=== PATIENT | male | born 1945 | race Caucasian/White ===

== ENCOUNTER 2017-04-27 11:30 | Inpatient (IN) | payer MEDICARE, BC ==
[~2017-04-27] VITALS: Ht 167.6 cm; Wt 89.4 kg
[~2017-04-27 11:30] MED LIST: CARB1TAB47 PO; CITA20SO PO; CLON1TAB23 PO; CRESTOR20 MG PO; DUTA1CPM PO; NIFE10CA PO; POTA20PA PO; PRAM0.25 PO
[2017-04-27] MEDS ORDERED: ACETAMINOPHEN 325 MG TABLET PO PRN (13:00)
[2017-04-27] MEDS ORDERED: MAG HYDROX/AL HYDROX/SIMETH 30 ML ORAL.SUSP PO PRN (13:00)
[2017-04-27] MEDS ORDERED: MAGNESIUM HYDROXIDE 2,400 MG/30 ML ORAL.SUSP. PO PRN (13:00)
[2017-04-27] MEDS ORDERED: METHYL SALICYLATE/MENTHOL TOPICAL OINTMENT 29GM TUBE. TP PRN (13:00)
[2017-04-27 13:17] LABS: BASO % 1 % (0-3); EOS # 0.2 x10^3/uL (0.0-0.7); EOS % 3 % (0-3); HEMATOCRIT 40.2 % (39.0-53.0); HEMOGLOBIN 13.9 g/dL (13.0-17.5); LYMPH # 1.1 x10^3/uL (1.0-4.8); LYMPH % 16 % (24-48); MEAN CORPUSCULAR HEMOGLOBIN 33 pg (25-35); MEAN CORPUSCULAR HGB CONC 35 g/dL (31-37); MEAN CORPUSCULAR VOLUME 94 fL (79-100); MONO # 0.5 x10^3/uL (0.0-1.1); MONO % 7 % (0-9); NEUT # 5.3 x10^3uL (1.8-7.7); NEUT % 74 % (31-73); PLATELET COUNT 248 x10^3/uL (140-400); RED BLOOD COUNT 4.28 x10^6/uL (4.30-5.70); RED CELL DISTRIBUTION WIDTH 12.7 % (11.5-14.5); WHITE BLOOD COUNT 7.1 x10^3/uL (4.0-11.0)
[2017-04-27 13:25] VITALS: BP 168/99
[2017-04-27 13:31] LABS: ALBUMIN 3.8 g/dL (3.4-5.0); ALBUMIN/GLOBULIN RATIO 1.1 (1.0-1.7); CALCIUM 8.9 mg/dL (8.5-10.1); CREATININE 1.5 mg/dL (0.7-1.3); GFR 46.3; MAGNESIUM 2.3 mg/dL (1.8-2.4); POTASSIUM 3.8 mmol/L (3.5-5.1); TOTAL BILIRUBIN 0.4 mg/dL (0.2-1.0); TOTAL PROTEIN 7.2 g/dL (6.4-8.2)
[2017-04-27 13:47] LABS: % BANDS 1 % (0-9); % EOS 2 % (0-5); % LYMPHS 17 % (24-48); % METAS 1 % (0-0); % MONOS 9 % (0-10); % SEGS 70 % (35-66); TOXIC GRANULATION SLIGHT
[2017-04-27 13:48] LABS: PLT ESTIMATE ADEQUATE (ADEQUATE)
[2017-04-27] MEDS ORDERED: FLUOCINONIDE/EMOLLIENT 0.05% TOPICAL CREAM 15GM TUBE TP PRN (14:45)
[2017-04-27] MEDS ORDERED: ASPI-630 PO (14:55)
[2017-04-27] MEDS ORDERED: GABA600T2 PO (14:55)
[2017-04-27] MEDS ORDERED: FLUO15CR2 TP (14:55)
[2017-04-27] MEDS ORDERED: AMLO5TAB4 PO (14:55)
[2017-04-27] MEDS ORDERED: SPIR25TA PO (14:55)
[2017-04-27] MEDS ORDERED: KETO120S5 TP (14:55)
[2017-04-27] MEDS ORDERED: QUET50TA5 PO (14:55)
[2017-04-27] MEDS ORDERED: GABA-586 PO (14:55)
[2017-04-27] MEDS ORDERED: DOCU100C28 PO (14:55)
[2017-04-27 15:33] LABS: BILIRUBIN,URINE NEG (NEG); CLARITY,URINE CLEAR; COLOR,URINE YELLOW; GLUCOSE,URINE NEG (NEG); NITRITE,URINE NEG (NEG); UROBILINOGEN,URINE 0.2 mg/dL (0.2 mg/dL)
[2017-04-27 15:34] LABS: BACTERIA,URINE 0 /HPF (0-FEW); GRANULAR CASTS,URINE OCC /HPF; HYALINE CASTS, URINE FEW /HPF; SQUAMOUS EPITHELIAL CELL,UR OCC /LPF
--- NOTE | 2017-04-27 16:02 | EKG ---
[address] [address] Test Date: 2017-04-27 Test Time: 15:55:51 Pat Name: MADELYN PRINCE Department: Room: [address] [place] [address] Gender: M Coat Checker: ROSANNA : 1945 Requested By: NARCISA MONTEZ Order Number: [id number] Reading MD: Measurements Intervals [place] Rate: 62 P: 47 [place]: 156 QRS: 27 QRSD: 96 T: 38 QT: 408 QTc: 416 Interpretive Statements SINUS RHYTHM NO SPECIFIC ECG ABNORMALITIES RI6.01 No previous ECG available for comparison
[2017-04-27 16:14] VITALS: BP 138/85
[2017-04-27] MEDS ORDERED: AMITRIPTYLINE IV PRN (16:30)
[2017-04-27] MEDS ORDERED: EMU OIL IV PRN (16:30)
[2017-04-27] MEDS ORDERED: GABAPENTIN IV PRN (16:30)
[2017-04-27] MEDS: DUTASTERIDE 0.5 MG CAPSULE PO SCH (17:00)
[2017-04-27] MEDS: GABAPENTIN 300 MG CAPSULE. PO SCH ×2 (17:13→20:15)
[2017-04-27] MEDS: TAMSULOSIN 0.4 MG CAP.ER.24H. PO SCH (17:13)
[2017-04-27] MEDS: CARBIDOPA/LEVODOPA 25/100MG TABLET PO SCH ×2 (17:14→20:15)
[2017-04-27] MEDS: clonazePAM 1 MG TABLET PO SCH (20:14)
[2017-04-27] MEDS: MEMANTINE 5 MG TABLET. PO SCH (20:14)
[2017-04-27] MEDS: QUEtiapine 50 MG TABLET. PO SCH (20:15)
[2017-04-27] MEDS ORDERED: CARBIDOPA/LEVODOPA 25/100MG TABLET PO SCH (21:00)
[2017-04-27] MEDS ORDERED: QUEtiapine 50 MG TABLET. PO SCH (21:00)
--- NOTE | 2017-04-27 21:06 | PDOC ---
Exam Jb Demential Exam: Jb Note: Please also refer to the separate dictated note~for this date of service dictated separately.~Patient seen individually. Discussed the patient with Nursing staff reviewed the chart.~Reviewed interim history and current functioning. Reviewed vital signs,~Labs/ Radiology~and current medications noted below. Continue current treatment with the changes noted in the dictated addendum note Assessment: Vital Signs: Vital Signs Date Time Temp Pulse Resp B/P (MAP) Pulse Ox O2 Delivery O2 Flow Rate FiO2 04/27/17 16:14 98.0 76 18 138/85 (102) 100 I&O Intake and Output 04/28/17 07:00 Intake Total 360 ml Balance 360 ml Intake Oral 360 ml Labs: Laboratory Tests Test 04/27/17 13:06 04/27/17 14:27 White Blood Count 7.1 x10^3/uL (4.0-11.0) Red Blood Count 4.28 x10^6/uL (4.30-5.70) L Hemoglobin 13.9 g/dL (13.0-17.5) Hematocrit 40.2 % (39.0-53.0) Mean Corpuscular Volume 94 fL (79-100) Mean Corpuscular Hemoglobin 33 pg (25-35) Mean Corpuscular Hemoglobin Concent 35 g/dL (31-37) Red Cell Distribution Width 12.7 % (11.5-14.5) Platelet Count 248 x10^3/uL (140-400) Neutrophils (%) (Auto) 74 % (31-73) H Lymphocytes (%) (Auto) 16 % (24-48) L Monocytes (%) (Auto) 7 % (0-9) Eosinophils (%) (Auto) 3 % (0-3) Basophils (%) (Auto) 1 % (0-3) Neutrophils # (Auto) 5.3 x10^3uL (1.8-7.7) Lymphocytes # (Auto) 1.1 x10^3/uL (1.0-4.8) Monocytes # (Auto) 0.5 x10^3/uL (0.0-1.1) Eosinophils # (Auto) 0.2 x10^3/uL (0.0-0.7) Basophils # (Auto) 0.0 x10^3/uL (0.0-0.2) Segmented Neutrophils % 70 % (35-66) H Band Neutrophils % 1 % (0-9) Lymphocytes % 17 % (24-48) L Monocytes % 9 % (0-10) Eosinophils % 2 % (0-5) Metamyelocytes % 1 % (0-0) H Toxic Granulation Slight Platelet Estimate Adequate (ADEQUATE) Sodium Level 144 mmol/L (136-145) Potassium Level 3.8 mmol/L (3.5-5.1) Chloride Level 109 mmol/L (98-107) H Carbon Dioxide Level 28 mmol/L (21-32) Anion Gap 7 (6-14) Blood Urea Nitrogen 28 mg/dL (8-26) H Creatinine 1.5 mg/dL (0.7-1.3) H Estimated GFR (Cockcroft-Gault) 46.3 BUN/Creatinine Ratio 19 (6-20) Glucose Level 110 mg/dL (70-99) H Calcium Level 8.9 mg/dL (8.5-10.1) Magnesium Level 2.3 mg/dL (1.8-2.4) Total Bilirubin 0.4 mg/dL (0.2-1.0) Aspartate Amino Transferase (AST) 9 U/L (15-37) L Alanine Aminotransferase (ALT) 17 U/L (16-63) Alkaline Phosphatase 72 U/L (46-116) Total Protein 7.2 g/dL (6.4-8.2) Albumin 3.8 g/dL (3.4-5.0) Albumin/Globulin Ratio 1.1 (1.0-1.7) Urine Collection Type Unknown Urine Color Yellow Urine Clarity Clear Urine pH 5.5 Urine Specific [place] 1.010 Urine Protein Neg (NEG-TRACE) Urine Glucose (UA) Neg mg/dL (NEG) Urine Ketones (Stick) Neg mg/dL (NEG) Urine Blood Neg (NEG) Urine Nitrite Neg (NEG) Urine Bilirubin Neg (NEG) Urine Urobilinogen Dipstick 0.2 mg/dL (0.2 mg/dL) Urine Leukocyte Esterase Neg (NEG) Urine RBC 1-2 /HPF (0-2) Urine WBC 1-4 /HPF (0-4) Urine Squamous Epithelial Cells Occ /LPF Urine Bacteria 0 /HPF (0-FEW) Urine Hyaline Casts Few /HPF Urine Granular Casts Occ /HPF Urine Mucus Slight /LPF Current Medications: Meds: Current Medications Acetaminophen (Tylenol) 650 mg PRN Q6HRS PRN PO PAIN / TEMP; Start 04/27/17 at 13:00 Multi-Ingredient Ointment (Analgesic [place]) 1 ben PRN QID PRN TP MUSCLE PAIN; Start 04/27/17 at 13:00 Al Hydroxide/Mg Hydroxide (Mylanta Plus Xs) 15 ml PRN AFTMEALHC PRN PO DYSPEPSIA; Start 04/27/17 at 13:00 Magnesium Hydroxide (Milk Of Magnesia) 2,400 mg PRN QHS PRN PO CONSTIPATION; Start 04/27/17 at 13:00 Amlodipine Besylate (Norvasc) 5 mg DAILY PO ; Start 04/28/17 at 09:00 Aspirin (Children'S Aspirin) 81 mg DAILY PO ; Start 04/28/17 at 09:00 Docusate Sodium (Colace) 100 mg PRN BID PRN PO CONSTIPATION; Start 04/27/17 at 14:45 Fluocinonide (Lidex-E) 1 ben PRN BID PRN TP dry scalp; Start 04/27/17 at 14:45 Gabapentin (Neurontin) 300 mg TID@0900,1300,1700 PO Last administered on 17:13; Start 04/27/17 at 17:00 Ketoconazole (Nizoral 2% Shampoo) 1 ben 3X/WEEK TP ; Start 04/28/17 at 09:00 Quetiapine Fumarate (SEROquel) 50 mg QHS PO ; Start 04/27/17 at 21:00; Stop at 21:00; Status DC Spironolactone (Aldactone) 25 mg DAILY PO ; Start 04/28/17 at 09:00 Carbidopa/Levodopa (Sinemet 25/100) 1.5 tab TID PO ; Start 04/27/17 at 21:00; Stop 04/27/17 at 21:00; Status DC Clonazepam (KlonoPIN) 1 mg QHS PO Last administered on 04/27/17t 20:14; Start 04/27/17 at 21:00 Dutasteride (Avodart) 0.5 mg DAILYWLUN PO ; Start 04/28/17 at 12:00; Stop at 12:00; Status DC Gabapentin (Neurontin) 900 mg QHS PO Last administered on 04/27/17 20:15; Start 04/27/17 at 21:00 Influenza Virus Vaccine Quadrival (Fluarix Quad [id number] Syringe) 0.5 ml ONCE ONCE VAX IM ; Start 04/28/17 at 09:00; Stop 04/28/17 at 09:01 Tamsulosin HCl (Flomax) 0.4 mg DAILYWLUN PO ; Start 04/28/17 at 12:00; Stop at 12:00; Status DC Non-Formulary Medication 1 ea PRN Q8HRS PRN IV RESTLESS LEG PAIN; Start at 16:30 Carbidopa/Levodopa (Sinemet 25/100) 1.5 tab TID PO Last administered on 20:15; Start 04/27/17 at 17:00 Tamsulosin HCl (Flomax) 0.4 mg DAILYWLUN PO Last administered on 04/27/17 17: 13; Start 04/27/17 at 17:00 Dutasteride (Avodart) 0.5 mg DAILYWLUN PO Last administered on 04/27/17 17:00 ; Start 04/27/17 at 17:00 Rivastigmine (Exelon) 1 patch DAILY TD ; Start 04/28/17 at 09:00; Stop 04/28/17 at 09:00; Status DC Quetiapine Fumarate (SEROquel) 62.5 mg QHS PO Last administered on 04/27/17 20 :15; Start 04/27/17 at 21:00 Memantine (Namenda) 5 mg BID PO Last administered on 04/27/17 20:14; Start at 21:00 Active Scripts Active Reported Aldactone (Spironolactone) 25 Mg Tablet 25 Mg PO DAILY Seroquel (Quetiapine Fumarate) 50 Mg Tablet 50 Mg PO QHS Nizoral (Ketoconazole) 120 Ml Shampoo 1 Ben TP 3X/WEEK Gabapentin 600 Mg Tablet 900 Mg PO QHS Gabapentin 300 Mg Capsule 300 Mg PO TID@0900,1300,1700 Fluocinonide-E 0.05% Cream (Fluocinonide/Emollient) 15 Gm Cream..g. 1 Applic TP BID PRN use 2-4x daily to scalp Docusate Sodium 100 Mg Capsule 100 Mg PO PRN BID PRN Aspirin 81 Mg Tab.chew 81 Mg PO DAILY Norvasc (Amlodipine Besylate) 5 Mg Tablet 5 Mg PO DAILY Klor-Con (Potassium Chloride) 20 Meq Packet 20 Meq PO Procardia (Nifedipine) 10 Mg Capsule 10 Mg PO Citalopram Hbr (Citalopram Hydrobromide) 20 Mg/10 Ml Solution 20 Mg PO Clonazepam Odt (Clonazepam) 1 Mg Tab.rapdis 1 Mg PO QHS Crestor (Rosuvastatin Calcium) 20 Mg Tablet 20 Mg PO Linda 0.5-0.4 Mg Capsule (Dutasteride/Tamsulosin Hcl) 1 Each Cpmp.24hr 1 Each PO DAILYWLUN Carbidopa-Levo 25-100 Mg Odt (Carbidopa/Levodopa) 1 Each Tab.rapdis 1.5 Each PO TID Pramipexole Dihydrochloride (Pramipexole Di-Hcl) 0.25 Mg Tablet 0.25 Mg PO NARCISA MONTEZ MD Apr 27, 2017 21:06
[2017-04-28 04:08] LABS: HEMOGLOBIN A1C 5.4 % (4.8-5.6)
[2017-04-28 05:11] LABS: T3 TOTAL 104 ng/dL (71-180); THYROXINE 6.2 ug/dL (4.5-12.0)
[2017-04-28 06:31] VITALS: BP 164/81
[2017-04-28] MEDS ORDERED: RIVASTIGMINE 4.6MG PATCH. TD SCH (09:00)
[2017-04-28] MEDS ORDERED: FLU VACC QS2017-18 (36MOS+)/PF 0.5 ML SYRINGE. VAX IM ONE (09:00)
[2017-04-28] MEDS: KETOCONAZOLE 2% SHAMPOO 120ML BOTTLE. TP SCH (09:00)
[2017-04-28] MEDS: GABAPENTIN 300 MG CAPSULE. PO SCH ×4 (09:30→20:29)
[2017-04-28] MEDS: CARBIDOPA/LEVODOPA 25/100MG TABLET PO SCH ×3 (09:30→20:30)
[2017-04-28] MEDS: MEMANTINE 5 MG TABLET. PO SCH ×2 (09:31→20:25)
[2017-04-28] MEDS: amLODIPine BESYLATE 5 MG TABLET PO SCH (09:33)
[2017-04-28] MEDS: ASPIRIN 81 MG TAB.CHEW PO SCH (09:33)
[2017-04-28] MEDS: SPIRONOLACTONE 25 MG TABLET PO SCH (09:33)
[2017-04-28] MEDS: DOCUSATE SODIUM 100 MG CAPSULE PO PRN (10:26)
--- NOTE | 2017-04-28 11:12 | HP ---
ADMIT DATE: 04/27/2017 PSYCHIATRIC ADMISSION HISTORY/EVALUATION This is a late entry for date of service 04/27/2017. The patient was seen individually evening of 04/27/2017. I had previously discussed with the nursing staff on 2-3 occasions as the patient is being referred to us by his primary care physician, Dr. Mir on account of worsening psychotic symptoms within the context of his Parkinson's disease and potentially dangerous behaviors since he lives alone at home, and he was reacting to the visual hallucinations he was experiencing. He had failed prior interventions at the [facility], Department of Neurology. This note covers elements not covered in my initial note of 04/27/2017. IDENTIFYING DATA: The patient is a 72-year-old male referred to us by his primary care physician, Dr. Mir on account of recurrent visual hallucinations. Reportedly, the patient was seeing dogs and other animals, was throwing water at them, taking a stick after them. Much of this would happen at night and he was having significant sleep disturbance. The patient describes to extended periods of hallucinations and agrees that in his reaction and response to these hallucinations. Behaviors were dangerous. He states he was asked to stop driving as a consequence of this and he agreed to. He has the support of his son who lives a few houses down the street from him and helps with the patient's grocery shopping and other activities, but otherwise he is and lives by himself. Appetite has been fair. Sleep has been disturbed. No active suicidal or homicidal ideation. No clear symptoms of bipolar disorder. The patient has had some short term memory deficits. PAST PSYCHIATRIC HISTORY: As above. MEDICAL HISTORY: Positive for sleep apnea, spinal stenosis, restless legs syndrome, hypertension, arthritis, memory deficits, and a prior diagnosis of dementia, prostatic hypertrophy, hyperlipidemia, orthostatic hypotension, Parkinson's disease, acute kidney injury, chronic kidney disease stage 3. DRUG ALLERGIES: Negative. PRIMARY CARE PHYSICIAN: Dr. Mir. DIET: Regular. CODE STATUS: Full code. MEDICATIONS: Current psychotropics at the time of admission include Seroquel 50 mg at bedtime, Klonopin 1 mg at bedtime. MRAD was reviewed and he is additionally on Norvasc, aspirin, Sinemet, Avodart, Neurontin for his restless leg syndrome, Seroquel 50 mg at bedtime, which is being increased to 62.5 mg at bedtime, Aldactone, Flomax. FAMILY HISTORY: Noncontributory. SOCIAL HISTORY: The patient is , lives alone by himself. No alcohol or drug abuse history is noted. No physical, sexual, or elder abuse history. He is not known to be a perpetrator. MENTAL STATUS EXAMINATION: The patient was seen individually evening of 04/27/2017. He is oriented to himself and situation, initially thought the year was 1916, but then corrected it to 2017. He does have some short term memory deficits. Speech is coherent, otherwise fairly verbal, frustrated with the hallucinations, which have been recurrent. No active hallucinations at the time of my evaluation. No active suicidal or homicidal ideation. Attention span short, language function intact. Speech coherent. Thought processes goal directed. REVIEW OF SYSTEMS: No CV, , eye, ENT or pulmonary system symptoms on review. He does admit to the hallucinations as above. IMPRESSION: Psychotic disorder, unspecified. Probable major neurocognitive disorder, early Lewy body with delusions; anxiety disorder, unspecified; impulse control disorder, unspecified. Rest as above. PLAN: The patient had extensive medical neurological workup at the [facility]. We will not repeat this, request those records, Dr. Mir is aware of all those records and as indicated to the nursing staff that the patient's Sinemet should not be adjusted either way and we should focus on trying to resolve the hallucinations within the context of his Parkinson's without changing his medications for Parkinson's. I will see the patient daily individually. Request medical followup with Dr. Rosado/Dr. Borwn/Dr. Mir. We will increase the Seroquel to 62.5 mg p.o. at bedtime. Consider Nuplazid and given the possibility of Lewy body dementia, start Namenda 5 mg b.i.d. Initially, I had considered starting Exelon patch, but the patient stated he tried this in the past at [facility] I discontinued it. We will make further adjustments as clinically indicated. NARCISA MONTEZ MD DR: MILES/prachi JOB#: [id number] / [id number]
[2017-04-28] MEDS ORDERED: DUTASTERIDE 0.5 MG CAPSULE PO SCH (12:00)
[2017-04-28] MEDS ORDERED: TAMSULOSIN 0.4 MG CAP.ER.24H. PO SCH (12:00)
[2017-04-28 13:13] LABS: THYROID STIM HORMONE (TSH) 1.508 uIU/mL (0.358-3.740)
[2017-04-28] MEDS ORDERED: EMU OIL TP PRN (13:24)
[2017-04-28] MEDS ORDERED: AMITRIPTYLINE TP PRN (13:24)
[2017-04-28] MEDS ORDERED: GABAPENTIN TP PRN (13:24)
[2017-04-28] MEDS: DUTASTERIDE 0.5 MG CAPSULE PO SCH (13:33)
[2017-04-28] MEDS: TAMSULOSIN 0.4 MG CAP.ER.24H. PO SCH (13:33)
[2017-04-28 16:22] VITALS: BP 151/80
[2017-04-28] MEDS: clonazePAM 1 MG TABLET PO SCH (20:25)
[2017-04-28] MEDS: QUEtiapine 50 MG TABLET. PO SCH (20:30)
--- NOTE | 2017-04-28 21:03 | PDOC ---
Exam Jb Demential Exam: Jb Note: Please also refer to the separate dictated note~for this date of service dictated separately.~Patient seen individually. Discussed the patient with Nursing staff reviewed the chart.~Reviewed interim history and current functioning. Reviewed vital signs,~Labs/ Radiology~and current medications noted below. Continue current treatment with the changes noted in the dictated addendum note Assessment: Vital Signs: Vital Signs Date Time Temp Pulse Resp B/P (MAP) Pulse Ox O2 Delivery O2 Flow Rate FiO2 04/28/17 16:22 97.6 77 19 151/80 (103) 98 I&O Intake and Output 04/29/17 07:00 Intake Total 1080 ml Balance 1080 ml Intake Oral 1080 ml Current Medications: Meds: Current Medications Acetaminophen (Tylenol) 650 mg PRN Q6HRS PRN PO PAIN / TEMP; Start 04/27/17 at 13:00 Multi-Ingredient Ointment (Analgesic [place]) 1 ben PRN QID PRN TP MUSCLE PAIN; Start 04/27/17 at 13:00 Al Hydroxide/Mg Hydroxide (Mylanta Plus Xs) 15 ml PRN AFTMEALHC PRN PO DYSPEPSIA; Start 04/27/17 at 13:00 Magnesium Hydroxide (Milk Of Magnesia) 2,400 mg PRN QHS PRN PO CONSTIPATION; Start 04/27/17 at 13:00 Amlodipine Besylate (Norvasc) 5 mg DAILY PO Last administered on 04/28/17 09: 33; Start 04/28/17 at 09:00 Aspirin (Children'S Aspirin) 81 mg DAILY PO Last administered on 04/28/17 09: 33; Start 04/28/17 at 09:00 Docusate Sodium (Colace) 100 mg PRN BID PRN PO CONSTIPATION Last administered on 04/28/17 10:26; Start 04/27/17 at 14:45 Fluocinonide (Lidex-E) 1 ben PRN BID PRN TP dry scalp; Start 04/27/17 at 14:45 Gabapentin (Neurontin) 300 mg TID@0900,1300,1700 PO Last administered on 16:54; Start 04/27/17 at 17:00 Ketoconazole (Nizoral 2% Shampoo) 1 ben 3X/WEEK TP ; Start 04/28/17 at 09:00 Quetiapine Fumarate (SEROquel) 50 mg QHS PO ; Start 04/27/17 at 21:00; Stop at 21:00; Status DC Spironolactone (Aldactone) 25 mg DAILY PO Last administered on 04/28/17 09:33 ; Start 04/28/17 at 09:00 Carbidopa/Levodopa (Sinemet 25/100) 1.5 tab TID PO ; Start 04/27/17 at 21:00; Stop 04/27/17 at 21:00; Status DC Clonazepam (KlonoPIN) 1 mg QHS PO Last administered on 04/28/17 20:25; Start 04/27/17 at 21:00 Dutasteride (Avodart) 0.5 mg DAILYWLUN PO ; Start 04/28/17 at 12:00; Stop at 12:00; Status DC Gabapentin (Neurontin) 900 mg QHS PO Last administered on 04/28/17 20:29; Start 04/27/17 at 21:00 Influenza Virus Vaccine Quadrival (Fluarix Quad [id number] Syringe) 0.5 ml ONCE ONCE VAX IM ; Start 04/28/17 at 09:00; Stop 04/28/17 at 09:01; Status DC Tamsulosin HCl (Flomax) 0.4 mg DAILYWLUN PO ; Start 04/28/17 at 12:00; Stop at 12:00; Status DC Non-Formulary Medication 1 ea PRN Q8HRS PRN IV RESTLESS LEG PAIN; Start at 16:30; Stop 04/28/17 at 13:24; Status DC Carbidopa/Levodopa (Sinemet 25/100) 1.5 tab TID PO Last administered on 20:30; Start 04/27/17 at 17:00 Tamsulosin HCl (Flomax) 0.4 mg DAILYWLUN PO Last administered on 04/28/17 13: 33; Start 04/27/17 at 17:00 Dutasteride (Avodart) 0.5 mg DAILYWLUN PO Last administered on 04/28/17 13:33 ; Start 04/27/17 at 17:00 Rivastigmine (Exelon) 1 patch DAILY TD ; Start 04/28/17 at 09:00; Stop 04/28/17 at 09:00; Status DC Quetiapine Fumarate (SEROquel) 62.5 mg QHS PO Last administered on 04/28/17 20 :30; Start 04/27/17 at 21:00 Memantine (Namenda) 5 mg BID PO Last administered on 04/28/17 20:25; Start at 21:00 Non-Formulary Medication 1 ea PRN Q8HRS PRN TP RESTLESS LEG PAIN; Start at 13:24 Vitamin D (Vitamin D3) 50,000 unit WEEKLY PO ; Start 04/29/17 at 09:00 Vitamin D (Vitamin D3) 50,000 unit WEEKLY PO ; Start 05/05/17 at 09:00; Status UNV Active Scripts Active Reported Aldactone (Spironolactone) 25 Mg Tablet 25 Mg PO DAILY Seroquel (Quetiapine Fumarate) 50 Mg Tablet 50 Mg PO QHS Nizoral (Ketoconazole) 120 Ml Shampoo 1 Ben TP 3X/WEEK Gabapentin 600 Mg Tablet 900 Mg PO QHS Gabapentin 300 Mg Capsule 300 Mg PO TID@0900,1300,1700 Fluocinonide-E 0.05% Cream (Fluocinonide/Emollient) 15 Gm Cream..g. 1 Applic TP BID PRN use 2-4x daily to scalp Docusate Sodium 100 Mg Capsule 100 Mg PO PRN BID PRN Aspirin 81 Mg Tab.chew 81 Mg PO DAILY Norvasc (Amlodipine Besylate) 5 Mg Tablet 5 Mg PO DAILY Klor-Con (Potassium Chloride) 20 Meq Packet 20 Meq PO Procardia (Nifedipine) 10 Mg Capsule 10 Mg PO Citalopram Hbr (Citalopram Hydrobromide) 20 Mg/10 Ml Solution 20 Mg PO Clonazepam Odt (Clonazepam) 1 Mg Tab.rapdis 1 Mg PO QHS Crestor (Rosuvastatin Calcium) 20 Mg Tablet 20 Mg PO Linda 0.5-0.4 Mg Capsule (Dutasteride/Tamsulosin Hcl) 1 Each Cpmp.24hr 1 Each PO DAILYWLUN Carbidopa-Levo 25-100 Mg Odt (Carbidopa/Levodopa) 1 Each Tab.rapdis 1.5 Each PO TID Pramipexole Dihydrochloride (Pramipexole Di-Hcl) 0.25 Mg Tablet 0.25 Mg PO Diagnosis: Problems: (1) Anxiety disorder (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
[2017-04-29 06:05] VITALS: BP 145/90
[2017-04-29] MEDS: MEMANTINE 5 MG TABLET. PO SCH ×2 (08:37→19:45)
[2017-04-29] MEDS: amLODIPine BESYLATE 5 MG TABLET PO SCH (08:37)
[2017-04-29] MEDS: CARBIDOPA/LEVODOPA 25/100MG TABLET PO SCH ×3 (08:38→19:45)
[2017-04-29] MEDS: ASPIRIN 81 MG TAB.CHEW PO SCH (08:38)
[2017-04-29] MEDS: SPIRONOLACTONE 25 MG TABLET PO SCH (08:38)
[2017-04-29] MEDS: GABAPENTIN 300 MG CAPSULE. PO SCH ×4 (08:38→19:45)
[2017-04-29] MEDS ORDERED: CHOLECALCIFEROL (VITAMIN D3) 50,000 UNIT CAPSULE PO SCH (09:00)
[2017-04-29] MEDS: DUTASTERIDE 0.5 MG CAPSULE PO SCH (12:25)
[2017-04-29] MEDS: TAMSULOSIN 0.4 MG CAP.ER.24H. PO SCH (12:25)
[2017-04-29] MEDS ORDERED: POLYVINYL ALCOHOL 1.4% OPHTH SOLUTION 15ML BOTTLE. OU PRN (15:30)
[2017-04-29 16:28] VITALS: BP 149/96
--- NOTE | 2017-04-29 17:48 | CONS ---
DATE OF CONSULTATION: 04/28/2017 REASON FOR CONSULTATION: Medical management. HISTORY OF PRESENT ILLNESS: The patient is a 72-year-old male patient who was admitted on the account of worsening psychotic symptoms within the context of his Parkinson disease as the patient has been reacting to visual hallucination. He lives alone at home and he was experiencing that he has been seeing dogs and other animals and was throwing water at them, taking a stick after them and all of this happened mostly at nighttime and he has significant sleep disturbances and the behavior was dangerous. He states he was asked to stop driving as a consequence of this and he agreed to. He has the support of his son who lives a few houses down the street from him and helps with the patient's grocery shopping and other activities. Otherwise, he is and lives by himself. He is here. The patient denied any suicidal or homicidal ideations and was admitted for inpatient psychiatric stabilization. PAST MEDICAL HISTORY: Significant for sleep apnea, spinal stenosis, restless leg syndrome, hypertension, osteoarthritis, memory deficit, dementia, prostatic hypertrophy, hyperlipidemia, orthostatic hypotension. He is also known to have Parkinson disease, acute kidney injury and chronic kidney disease stage 3. ALLERGIES: He has no known drug allergies. MEDICATIONS: He is currently on following medications: Amlodipine 5 mg once a day, aspirin 81 mg once a day, carbidopa/levodopa 25/100 mg one and a half tablet 3 times a day, citalopram hydrobromide 20 mg daily, clonazepam 1 mg once a day at bedtime, Colace 100 mg twice a day, dutasteride, tamsulosin 1 capsule once a day, fluocinonide/emollient applied topically twice a day for dry scalp, gabapentin 300 mg 3 times a day, gabapentin 900 mg at bedtime, ketoconazole or Nizoral 1 application topically 3 times per week, nifedipine 10 mg once a day, potassium chloride 20 mEq once a day, pramipexole 0.25 mg once a day, quetiapine fumarate 50 mg at bedtime, Crestor 20 mg at bedtime, spironolactone 25 mg p.o. daily. FAMILY HISTORY: Unremarkable. SOCIAL HISTORY: The patient is , lives alone by himself. He does not drink alcohol or use any recreational drugs. Does not smoke. PHYSICAL EXAMINATION: GENERAL: When I saw him this afternoon, he was sitting comfortably in his chair in no apparent distress. He was awake, alert, oriented to time, place and person. There was no pallor, jaundice or cyanosis. No lymphadenopathy or thyromegaly. No jugular venous distention. No limb edema. VITAL SIGNS: His heart rate was 77, blood pressure 151/80, temperature was 97.6, respiratory rate was 19 and oxygen saturation was 98%. HEAD, EYES, EARS, NOSE, and THROAT: Showed normocephalic, atraumatic. NECK: Supple. HEART: Showed normal first and second heart sounds with no gallop, rub or murmur. CHEST: Clear to auscultation. No crepitation or rhonchi. ABDOMEN: Distended, soft, nontender. No guarding or rigidity. No organomegaly. Hernial orifices intact. Bowel sounds normal. NEUROLOGIC: He was awake, alert, responding appropriately. Cranial nerves intact. EXTREMITIES: He moves extremities without difficulty. He ambulates without assistance or assistive devices. LABORATORY DATA: This morning showed a serum sodium 144, potassium 3.8, chloride 109, bicarbonate 28, anion gap of 7, BUN 28, creatinine 1.5, estimated GFR was 60 mL per minute. His glucose 110, calcium was 8.9, magnesium was 2.3. Hemoglobin A1c was 5.4. Serum iron 72, TIBC was 266, iron saturation 27. Total bilirubin, AST, ALT, alkaline phosphatase were normal. Total protein 7.2, albumin 3.8. His triglycerides were 91, cholesterol 181, LDL was 130, VLDL was 18, and HDL was 50, the ratio was 3. His vitamin D3 was low at 29.6. TSH was normal at 1.5. Total T4 and total T3 were all normal. His white cell count was 7100, hemoglobin 13.9, hematocrit 40, MCV 94 and platelet count 248,000 with normal manual differential. ASSESSMENT AND PLAN: In summary, this is a 72-year-old male patient with visual hallucination that he tends to react to. He basically sees dogs and other animals, was throwing water at them and taking a stick after them and much of this would happen at nighttime. He has significant sleep disturbance. He is on Sinemet. The most likely cause of his hallucinations is the Sinemet; however, he has Parkinson disease. I believe he is followed by his neurologist at [facility]. I would consult Dr. Sanford to perhaps assist and tell if whether some other medications can be substituted. CRISTEL TATE MD DR: FABIOLA/prachi JOB#: [id number] / [id number]
[2017-04-29] MEDS: QUEtiapine 50 MG TABLET. PO SCH (19:45)
[2017-04-29] MEDS: clonazePAM 1 MG TABLET PO SCH (19:46)
[2017-04-29] MEDS: MIRTAZAPINE 7.5 MG TABLET. PO SCH (19:47)
--- NOTE | 2017-04-29 20:55 | PDOC ---
Exam Jb Demential Exam: Jb Note: Please also refer to the separate dictated note~for this date of service dictated separately.~Patient seen individually. Discussed the patient with Nursing staff reviewed the chart.~Reviewed interim history and current functioning. Reviewed vital signs,~Labs/ Radiology~and current medications noted below. Continue current treatment with the changes noted in the dictated addendum note Assessment: Vital Signs: Vital Signs Date Time Temp Pulse Resp B/P (MAP) Pulse Ox O2 Delivery O2 Flow Rate FiO2 04/29/17 16:28 98.6 80 16 149/96 (113) 97 Room Air I&O Intake and Output 04/30/17 06:59 Intake Total 1400 ml Balance 1400 ml Intake Oral 1400 ml Current Medications: Meds: Current Medications Acetaminophen (Tylenol) 650 mg PRN Q6HRS PRN PO PAIN / TEMP; Start 04/27/17 at 13:00 Multi-Ingredient Ointment (Analgesic [place]) 1 ben PRN QID PRN TP MUSCLE PAIN; Start 04/27/17 at 13:00 Al Hydroxide/Mg Hydroxide (Mylanta Plus Xs) 15 ml PRN AFTMEALHC PRN PO DYSPEPSIA; Start 04/27/17 at 13:00 Magnesium Hydroxide (Milk Of Magnesia) 2,400 mg PRN QHS PRN PO CONSTIPATION; Start 04/27/17 at 13:00 Amlodipine Besylate (Norvasc) 5 mg DAILY PO Last administered on 04/29/17 08: 37; Start 04/28/17 at 09:00 Aspirin (Children'S Aspirin) 81 mg DAILY PO Last administered on 04/29/17 08: 38; Start 04/28/17 at 09:00 Docusate Sodium (Colace) 100 mg PRN BID PRN PO CONSTIPATION Last administered on 04/28/17 10:26; Start 04/27/17 at 14:45 Fluocinonide (Lidex-E) 1 ben PRN BID PRN TP dry scalp; Start 04/27/17 at 14:45 Gabapentin (Neurontin) 300 mg TID@0900,1300,1700 PO Last administered on 16:10; Start 04/27/17 at 17:00 Ketoconazole (Nizoral 2% Shampoo) 1 ben 3X/WEEK TP ; Start 04/28/17 at 09:00 Quetiapine Fumarate (SEROquel) 50 mg QHS PO ; Start 04/27/17 at 21:00; Stop at 21:00; Status DC Spironolactone (Aldactone) 25 mg DAILY PO Last administered on 04/29/17 08:38 ; Start 04/28/17 at 09:00 Carbidopa/Levodopa (Sinemet 25/100) 1.5 tab TID PO ; Start 04/27/17 at 21:00; Stop 04/27/17 at 21:00; Status DC Clonazepam (KlonoPIN) 1 mg QHS PO Last administered on 04/29/17 19:46; Start 04/27/17 at 21:00 Dutasteride (Avodart) 0.5 mg DAILYWLUN PO ; Start 04/28/17 at 12:00; Stop at 12:00; Status DC Gabapentin (Neurontin) 900 mg QHS PO Last administered on 04/29/17 19:45; Start 04/27/17 at 21:00 Influenza Virus Vaccine Quadrival (Fluarix Quad [id number] Syringe) 0.5 ml ONCE ONCE VAX IM ; Start 04/28/17 at 09:00; Stop 04/28/17 at 09:01; Status DC Tamsulosin HCl (Flomax) 0.4 mg DAILYWLUN PO ; Start 04/28/17 at 12:00; Stop at 12:00; Status DC Non-Formulary Medication 1 ea PRN Q8HRS PRN IV RESTLESS LEG PAIN; Start at 16:30; Stop 04/28/17 at 13:24; Status DC Carbidopa/Levodopa (Sinemet 25/100) 1.5 tab TID PO Last administered on 19:45; Start 04/27/17 at 17:00 Tamsulosin HCl (Flomax) 0.4 mg DAILYWLUN PO Last administered on 04/29/17 12: 25; Start 04/27/17 at 17:00 Dutasteride (Avodart) 0.5 mg DAILYWLUN PO Last administered on 04/29/17 12:25 ; Start 04/27/17 at 17:00 Rivastigmine (Exelon) 1 patch DAILY TD ; Start 04/28/17 at 09:00; Stop 04/28/17 at 09:00; Status DC Quetiapine Fumarate (SEROquel) 62.5 mg QHS PO Last administered on 04/29/17 19 :45; Start 04/27/17 at 21:00 Memantine (Namenda) 5 mg BID PO Last administered on 04/29/17 19:45; Start at 21:00 Non-Formulary Medication 1 ea PRN Q8HRS PRN TP RESTLESS LEG PAIN; Start at 13:24 Vitamin D (Vitamin D3) 50,000 unit WEEKLY PO Last administered on 04/29/17 08: 40; Start 04/29/17 at 09:00 Vitamin D (Vitamin D3) 50,000 unit WEEKLY PO ; Start 05/05/17 at 09:00; Status UNV Mirtazapine (Remeron) 3.75 mg QHS PO Last administered on 04/29/17 19:47; Start 04/29/17 at 21:00 Artificial Tears (Artificial Tears) 1 drop PRN Q1HR PRN OU DRY EYE Last administered on 04/29/17 16:10; Start 04/29/17 at 15:30 Active Scripts Active Reported Aldactone (Spironolactone) 25 Mg Tablet 25 Mg PO DAILY Seroquel (Quetiapine Fumarate) 50 Mg Tablet 50 Mg PO QHS Nizoral (Ketoconazole) 120 Ml Shampoo 1 Ben TP 3X/WEEK Gabapentin 600 Mg Tablet 900 Mg PO QHS Gabapentin 300 Mg Capsule 300 Mg PO TID@0900,1300,1700 Fluocinonide-E 0.05% Cream (Fluocinonide/Emollient) 15 Gm Cream..g. 1 Applic TP BID PRN use 2-4x daily to scalp Docusate Sodium 100 Mg Capsule 100 Mg PO PRN BID PRN Aspirin 81 Mg Tab.chew 81 Mg PO DAILY Norvasc (Amlodipine Besylate) 5 Mg Tablet 5 Mg PO DAILY Klor-Con (Potassium Chloride) 20 Meq Packet 20 Meq PO Procardia (Nifedipine) 10 Mg Capsule 10 Mg PO Citalopram Hbr (Citalopram Hydrobromide) 20 Mg/10 Ml Solution 20 Mg PO Clonazepam Odt (Clonazepam) 1 Mg Tab.rapdis 1 Mg PO QHS Crestor (Rosuvastatin Calcium) 20 Mg Tablet 20 Mg PO Linda 0.5-0.4 Mg Capsule (Dutasteride/Tamsulosin Hcl) 1 Each Cpmp.24hr 1 Each PO DAILYWLUN Carbidopa-Levo 25-100 Mg Odt (Carbidopa/Levodopa) 1 Each Tab.rapdis 1.5 Each PO TID Pramipexole Dihydrochloride (Pramipexole Di-Hcl) 0.25 Mg Tablet 0.25 Mg PO Diagnosis: Problems: (1) Anxiety disorder (2) Dementia due to Parkinson's disease with behavioral disturbance (3) Impulse control disorder (4) Psychosis, atypical NARCISA MONTEZ MD Apr 29, 2017 20:55
[2017-04-30 06:24] VITALS: BP 162/96
--- NOTE | 2017-04-30 08:25 | PN ---
DATE: 04/28/2017 This late entry for 04/28/2017 covers elements not covered in my initial note of 04/28/2017. SUBJECTIVE: I met with the patient in the evening of 04/28/2017 at some length individually. The patient has been pleasant, takes his medications whole, denies any hallucinations. Reviewed further information from the family indicative of hallucinations, not only in the evening also during the day on several occasions. REVIEW OF SYSTEMS: No CV, , pulmonary, eye, ENT system symptoms on review. MENTAL STATUS EXAM: Reasonably oriented. Speech is coherent, abstraction fair, computation somewhat impaired, language function intact, attention span fair. Mood and affect appears stable. LABORATORY DATA: Reviewed. IMPRESSION: Unchanged from initial note. PLAN: Continue current psychotropics mentioned in my initial note Namenda 5 mg b.i.d. We will increase to 10 mg b.i.d. in a couple of days. Continue Seroquel at 62.5 mg at bedtime, may need to increase this if he experience any more hallucinations. Continue Klonopin 1 mg at bedtime. Reviewed drug interactions. Risk/benefit ratio favors no further change. MAN Brittany MONTEZ MD DR: MILES/prachi JOB#: [id number] / [id number]
[2017-04-30] MEDS: GABAPENTIN 300 MG CAPSULE. PO SCH ×4 (08:46→19:57)
[2017-04-30] MEDS: MEMANTINE 5 MG TABLET. PO SCH (08:46)
[2017-04-30] MEDS: SPIRONOLACTONE 25 MG TABLET PO SCH (08:46)
[2017-04-30] MEDS: amLODIPine BESYLATE 5 MG TABLET PO SCH (08:46)
[2017-04-30] MEDS: ASPIRIN 81 MG TAB.CHEW PO SCH (08:46)
[2017-04-30] MEDS: KETOCONAZOLE 2% SHAMPOO 120ML BOTTLE. TP SCH (08:47)
[2017-04-30] MEDS: CARBIDOPA/LEVODOPA 25/100MG TABLET PO SCH ×3 (08:47→19:57)
[2017-04-30] MEDS: DUTASTERIDE 0.5 MG CAPSULE PO SCH (14:07)
[2017-04-30] MEDS: TAMSULOSIN 0.4 MG CAP.ER.24H. PO SCH (14:08)
[2017-04-30 16:37] VITALS: BP 154/87
[2017-04-30] MEDS: QUEtiapine 50 MG TABLET. PO SCH (19:54)
[2017-04-30] MEDS: MIRTAZAPINE 7.5 MG TABLET. PO SCH (19:56)
[2017-04-30] MEDS: MEMANTINE 10 MG TABLET. PO SCH (20:00)
[2017-04-30] MEDS: clonazePAM 1 MG TABLET PO SCH (20:01)
--- NOTE | 2017-04-30 22:25 | PDOC ---
Exam Jb Demential Exam: Jb Note: Please also refer to the separate dictated note~for this date of service dictated separately.~Patient seen individually. Discussed the patient with Nursing staff reviewed the chart.~Reviewed interim history and current functioning. Reviewed vital signs,~Labs/ Radiology~and current medications noted below. Continue current treatment with the changes noted in the dictated addendum note Assessment: Vital Signs: Vital Signs Date Time Temp Pulse Resp B/P (MAP) Pulse Ox O2 Delivery O2 Flow Rate FiO2 04/30/17 16:37 97.8 78 18 154/87 (109) 98 04/29/17 16:28 Room Air I&O Intake and Output 05/01/17 07:00 Intake Total 1680 ml Balance 1680 ml Intake Oral 1680 ml Current Medications: Meds: Current Medications Acetaminophen (Tylenol) 650 mg PRN Q6HRS PRN PO PAIN / TEMP; Start 04/27/17 at 13:00 Multi-Ingredient Ointment (Analgesic [place]) 1 ben PRN QID PRN TP MUSCLE PAIN; Start 04/27/17 at 13:00 Al Hydroxide/Mg Hydroxide (Mylanta Plus Xs) 15 ml PRN AFTMEALHC PRN PO DYSPEPSIA; Start 04/27/17 at 13:00 Magnesium Hydroxide (Milk Of Magnesia) 2,400 mg PRN QHS PRN PO CONSTIPATION; Start 04/27/17 at 13:00 Amlodipine Besylate (Norvasc) 5 mg DAILY PO Last administered on 04/30/17 08: 46; Start 04/28/17 at 09:00 Aspirin (Children'S Aspirin) 81 mg DAILY PO Last administered on 04/30/17 08: 46; Start 04/28/17 at 09:00 Docusate Sodium (Colace) 100 mg PRN BID PRN PO CONSTIPATION Last administered on 04/28/17 10:26; Start 04/27/17 at 14:45 Fluocinonide (Lidex-E) 1 ben PRN BID PRN TP dry scalp; Start 04/27/17 at 14:45 Gabapentin (Neurontin) 300 mg TID@0900,1300,1700 PO Last administered on 17:03; Start 04/27/17 at 17:00 Ketoconazole (Nizoral 2% Shampoo) 1 ben 3X/WEEK TP ; Start 04/28/17 at 09:00 Quetiapine Fumarate (SEROquel) 50 mg QHS PO ; Start 04/27/17 at 21:00; Stop at 21:00; Status DC Spironolactone (Aldactone) 25 mg DAILY PO Last administered on 04/30/17 08:46 ; Start 04/28/17 at 09:00 Carbidopa/Levodopa (Sinemet 25/100) 1.5 tab TID PO ; Start 04/27/17 at 21:00; Stop 04/27/17 at 21:00; Status DC Clonazepam (KlonoPIN) 1 mg QHS PO Last administered on 04/30/17 20:01; Start 04/27/17 at 21:00 Dutasteride (Avodart) 0.5 mg DAILYWLUN PO ; Start 04/28/17 at 12:00; Stop at 12:00; Status DC Gabapentin (Neurontin) 900 mg QHS PO Last administered on 04/30/17 19:57; Start 04/27/17 at 21:00 Influenza Virus Vaccine Quadrival (Fluarix Quad [id number] Syringe) 0.5 ml ONCE ONCE VAX IM ; Start 04/28/17 at 09:00; Stop 04/28/17 at 09:01; Status DC Tamsulosin HCl (Flomax) 0.4 mg DAILYWLUN PO ; Start 04/28/17 at 12:00; Stop at 12:00; Status DC Non-Formulary Medication 1 ea PRN Q8HRS PRN IV RESTLESS LEG PAIN; Start at 16:30; Stop 04/28/17 at 13:24; Status DC Carbidopa/Levodopa (Sinemet 25/100) 1.5 tab TID PO Last administered on 19:57; Start 04/27/17 at 17:00 Tamsulosin HCl (Flomax) 0.4 mg DAILYWLUN PO Last administered on 04/30/17 14: 08; Start 04/27/17 at 17:00 Dutasteride (Avodart) 0.5 mg DAILYWLUN PO Last administered on 04/30/17 14:07 ; Start 04/27/17 at 17:00 Rivastigmine (Exelon) 1 patch DAILY TD ; Start 04/28/17 at 09:00; Stop 04/28/17 at 09:00; Status DC Quetiapine Fumarate (SEROquel) 62.5 mg QHS PO Last administered on 04/29/17 19 :45; Start 04/27/17 at 21:00; Stop 04/30/17 at 18:53; Status DC Memantine (Namenda) 5 mg BID PO Last administered on 04/30/17 08:46; Start at 21:00; Stop 04/30/17 at 17:38; Status DC Non-Formulary Medication 1 ea PRN Q8HRS PRN TP RESTLESS LEG PAIN; Start at 13:24 Vitamin D (Vitamin D3) 50,000 unit WEEKLY PO Last administered on 04/29/17 08: 40; Start 04/29/17 at 09:00 Vitamin D (Vitamin D3) 50,000 unit WEEKLY PO ; Start 05/05/17 at 09:00; Status UNV Mirtazapine (Remeron) 3.75 mg QHS PO Last administered on 04/30/17 19:56; Start 04/29/17 at 21:00 Artificial Tears (Artificial Tears) 1 drop PRN Q1HR PRN OU DRY EYE Last administered on 04/29/17 16:10; Start 04/29/17 at 15:30 Memantine (Namenda) 10 mg BID PO Last administered on 04/30/17 20:00; Start at 21:00 Quetiapine Fumarate (SEROquel) 75 mg QHS PO Last administered on 04/30/17 19: 54; Start 04/30/17 at 21:00 Active Scripts Active Reported Aldactone (Spironolactone) 25 Mg Tablet 25 Mg PO DAILY Seroquel (Quetiapine Fumarate) 50 Mg Tablet 50 Mg PO QHS Nizoral (Ketoconazole) 120 Ml Shampoo 1 Ben TP 3X/WEEK Gabapentin 600 Mg Tablet 900 Mg PO QHS Gabapentin 300 Mg Capsule 300 Mg PO TID@0900,1300,1700 Fluocinonide-E 0.05% Cream (Fluocinonide/Emollient) 15 Gm Cream..g. 1 Applic TP BID PRN use 2-4x daily to scalp Docusate Sodium 100 Mg Capsule 100 Mg PO PRN BID PRN Aspirin 81 Mg Tab.chew 81 Mg PO DAILY Norvasc (Amlodipine Besylate) 5 Mg Tablet 5 Mg PO DAILY Klor-Con (Potassium Chloride) 20 Meq Packet 20 Meq PO Procardia (Nifedipine) 10 Mg Capsule 10 Mg PO Citalopram Hbr (Citalopram Hydrobromide) 20 Mg/10 Ml Solution 20 Mg PO Clonazepam Odt (Clonazepam) 1 Mg Tab.rapdis 1 Mg PO QHS Crestor (Rosuvastatin Calcium) 20 Mg Tablet 20 Mg PO Linda 0.5-0.4 Mg Capsule (Dutasteride/Tamsulosin Hcl) 1 Each Cpmp.24hr 1 Each PO DAILYWLUN Carbidopa-Levo 25-100 Mg Odt (Carbidopa/Levodopa) 1 Each Tab.rapdis 1.5 Each PO TID Pramipexole Dihydrochloride (Pramipexole Di-Hcl) 0.25 Mg Tablet 0.25 Mg PO Diagnosis: Problems: (1) Anxiety disorder (2) Dementia due to Parkinson's disease with behavioral disturbance (3) Lewy body dementia with behavioral disturbance (4) Impulse control disorder (5) Psychosis, atypical NARCISA MONTEZ MD Apr 30, 2017 22:25
[2017-05-01 06:14] VITALS: BP 127/81
[2017-05-01] MEDS: SPIRONOLACTONE 25 MG TABLET PO SCH (08:49)
[2017-05-01] MEDS: TAMSULOSIN 0.4 MG CAP.ER.24H. PO SCH (08:49)
[2017-05-01] MEDS: ASPIRIN 81 MG TAB.CHEW PO SCH (08:49)
[2017-05-01] MEDS: GABAPENTIN 300 MG CAPSULE. PO SCH ×4 (08:50→20:30)
[2017-05-01] MEDS: CARBIDOPA/LEVODOPA 25/100MG TABLET PO SCH ×3 (08:50→20:29)
[2017-05-01] MEDS: DUTASTERIDE 0.5 MG CAPSULE PO SCH (08:50)
[2017-05-01] MEDS: amLODIPine BESYLATE 5 MG TABLET PO SCH (08:50)
[2017-05-01] MEDS: MEMANTINE 10 MG TABLET. PO SCH ×2 (08:52→20:30)
--- NOTE | 2017-05-01 10:31 | PN ---
DATE: 04/29/2017 PSYCHIATRIC PROGRESS NOTE This late entry for 04/29/2017 covers elements not covered in my initial note of 04/29/2017. SUBJECTIVE: The patient seen individually evening of 04/29/2017. Discussed at treatment team meeting with the entire team and patient's daughter, Norma attended the conference. Norma normally lives in [place] and has moved here for as long as it takes to be with her father till he is stable. She described repeated hallucinations the patient was experiencing and then picking up canes to go after dogs and cats and other things he would perceive in his home. He was seeing people as well and often in the evening, but not uncommonly during the day as well. He has remained reasonably oriented, calmer, slept 6-1/2 hours, appetite 100%. At home, he was having significant disturbance of sleep, even though he is sleeping better here. Norma shared that he had been to the [facility] in the past with a questionable diagnosis of early Lewy body dementia, but at that time, they discontinued the Mirapex which they felt could have been worsening the hallucinations. REVIEW OF SYSTEMS: No CV, , pulmonary, eye, ENT system symptoms on review. MENTAL STATUS EXAM: Reasonably oriented. Speech is coherent, very pleasant, verbal, appropriate, abstraction fair, computation impaired, language function intact, attention span short. Mood and affect somewhat dysphoric. LABORATORY DATA: Reviewed. No suicidal or homicidal ideation. IMPRESSION: Unchanged from initial note. PLAN: Start Remeron 3.75 mg at bedtime to help with the insomnia and anxiety. Maintain Namenda 5 b.i.d. starting 04/30/2017, we will increase it to 10 b.i.d. Continue Klonopin 1 mg at bedtime, Seroquel 62.5 mg at bedtime, but we may need to increase this further depending on his progress. Reviewed drug interactions, risk/benefit ratio favors no further change. NARCISA MONTEZ MD DR: MILES/prachi JOB#: [id number] / [id number]
[2017-05-01 17:19] VITALS: BP 161/95
[2017-05-01] MEDS: QUEtiapine 50 MG TABLET. PO SCH (20:27)
[2017-05-01] MEDS: MIRTAZAPINE 7.5 MG TABLET. PO SCH (20:27)
[2017-05-01] MEDS: clonazePAM 1 MG TABLET PO SCH (20:30)
[2017-05-01] MEDS: DOCUSATE SODIUM 100 MG CAPSULE PO PRN (20:39)
--- NOTE | 2017-05-01 23:10 | PDOC ---
Exam Jb Demential Exam: Jb Note: Please also refer to the separate dictated note~for this date of service dictated separately.~Patient seen individually. Discussed the patient with Nursing staff reviewed the chart.~Reviewed interim history and current functioning. Reviewed vital signs,~Labs/ Radiology~and current medications noted below. Continue current treatment with the changes noted in the dictated addendum note Assessment: Vital Signs: Vital Signs Date Time Temp Pulse Resp B/P (MAP) Pulse Ox O2 Delivery O2 Flow Rate FiO2 05/01/17 17:19 97.7 77 16 161/95 (117) 95 04/29/17 16:28 Room Air I&O Intake and Output 05/02/17 07:00 Intake Total 1680 ml Balance 1680 ml Intake Oral 1680 ml # Bowel Movements 1 Current Medications: Meds: Current Medications Acetaminophen (Tylenol) 650 mg PRN Q6HRS PRN PO PAIN / TEMP; Start 04/27/17 at 13:00 Multi-Ingredient Ointment (Analgesic [place]) 1 ben PRN QID PRN TP MUSCLE PAIN; Start 04/27/17 at 13:00 Al Hydroxide/Mg Hydroxide (Mylanta Plus Xs) 15 ml PRN AFTMEALHC PRN PO DYSPEPSIA; Start 04/27/17 at 13:00 Magnesium Hydroxide (Milk Of Magnesia) 2,400 mg PRN QHS PRN PO CONSTIPATION; Start 04/27/17 at 13:00 Amlodipine Besylate (Norvasc) 5 mg DAILY PO Last administered on 05/01/17 08: 50; Start 04/28/17 at 09:00 Aspirin (Children'S Aspirin) 81 mg DAILY PO Last administered on 05/01/17 08: 49; Start 04/28/17 at 09:00 Docusate Sodium (Colace) 100 mg PRN BID PRN PO CONSTIPATION Last administered on 05/01/17 20:39; Start 04/27/17 at 14:45 Fluocinonide (Lidex-E) 1 ben PRN BID PRN TP dry scalp; Start 04/27/17 at 14:45 Gabapentin (Neurontin) 300 mg TID@0900,1300,1700 PO Last administered on 17:56; Start 04/27/17 at 17:00 Ketoconazole (Nizoral 2% Shampoo) 1 ben 3X/WEEK TP ; Start 04/28/17 at 09:00 Quetiapine Fumarate (SEROquel) 50 mg QHS PO ; Start 04/27/17 at 21:00; Stop at 21:00; Status DC Spironolactone (Aldactone) 25 mg DAILY PO Last administered on 05/01/17 08:49 ; Start 04/28/17 at 09:00 Carbidopa/Levodopa (Sinemet 25/100) 1.5 tab TID PO ; Start 04/27/17 at 21:00; Stop 04/27/17 at 21:00; Status DC Clonazepam (KlonoPIN) 1 mg QHS PO Last administered on 05/01/17 20:30; Start 04/27/17 at 21:00 Dutasteride (Avodart) 0.5 mg DAILYWLUN PO ; Start 04/28/17 at 12:00; Stop at 12:00; Status DC Gabapentin (Neurontin) 900 mg QHS PO Last administered on 05/01/17 20:30; Start 04/27/17 at 21:00 Influenza Virus Vaccine Quadrival (Fluarix Quad [id number] Syringe) 0.5 ml ONCE ONCE VAX IM ; Start 04/28/17 at 09:00; Stop 04/28/17 at 09:01; Status DC Tamsulosin HCl (Flomax) 0.4 mg DAILYWLUN PO ; Start 04/28/17 at 12:00; Stop at 12:00; Status DC Non-Formulary Medication 1 ea PRN Q8HRS PRN IV RESTLESS LEG PAIN; Start at 16:30; Stop 04/28/17 at 13:24; Status DC Carbidopa/Levodopa (Sinemet 25/100) 1.5 tab TID PO Last administered on 20:29; Start 04/27/17 at 17:00 Tamsulosin HCl (Flomax) 0.4 mg DAILYWLUN PO Last administered on 05/01/17 08: 49; Start 04/27/17 at 17:00 Dutasteride (Avodart) 0.5 mg DAILYWLUN PO Last administered on 05/01/17 08:50 ; Start 04/27/17 at 17:00 Rivastigmine (Exelon) 1 patch DAILY TD ; Start 04/28/17 at 09:00; Stop 04/28/17 at 09:00; Status DC Quetiapine Fumarate (SEROquel) 62.5 mg QHS PO Last administered on 04/29/17 19 :45; Start 04/27/17 at 21:00; Stop 04/30/17 at 18:53; Status DC Memantine (Namenda) 5 mg BID PO Last administered on 04/30/17 08:46; Start at 21:00; Stop 04/30/17 at 17:38; Status DC Non-Formulary Medication 1 ea PRN Q8HRS PRN TP RESTLESS LEG PAIN; Start at 13:24 Vitamin D (Vitamin D3) 50,000 unit WEEKLY PO Last administered on 04/29/17 08: 40; Start 04/29/17 at 09:00 Vitamin D (Vitamin D3) 50,000 unit WEEKLY PO ; Start 05/05/17 at 09:00; Status UNV Mirtazapine (Remeron) 3.75 mg QHS PO Last administered on 05/01/17 20:27; Start 04/29/17 at 21:00 Artificial Tears (Artificial Tears) 1 drop PRN Q1HR PRN OU DRY EYE Last administered on 04/29/17 16:10; Start 04/29/17 at 15:30 Memantine (Namenda) 10 mg BID PO Last administered on 05/01/17 20:30; Start at 21:00 Quetiapine Fumarate (SEROquel) 75 mg QHS PO Last administered on 05/01/17 20: 27; Start 04/30/17 at 21:00 Active Scripts Active Reported Aldactone (Spironolactone) 25 Mg Tablet 25 Mg PO DAILY Seroquel (Quetiapine Fumarate) 50 Mg Tablet 50 Mg PO QHS Nizoral (Ketoconazole) 120 Ml Shampoo 1 Ben TP 3X/WEEK Gabapentin 600 Mg Tablet 900 Mg PO QHS Gabapentin 300 Mg Capsule 300 Mg PO TID@0900,1300,1700 Fluocinonide-E 0.05% Cream (Fluocinonide/Emollient) 15 Gm Cream..g. 1 Applic TP BID PRN use 2-4x daily to scalp Docusate Sodium 100 Mg Capsule 100 Mg PO PRN BID PRN Aspirin 81 Mg Tab.chew 81 Mg PO DAILY Norvasc (Amlodipine Besylate) 5 Mg Tablet 5 Mg PO DAILY Klor-Con (Potassium Chloride) 20 Meq Packet 20 Meq PO Procardia (Nifedipine) 10 Mg Capsule 10 Mg PO Citalopram Hbr (Citalopram Hydrobromide) 20 Mg/10 Ml Solution 20 Mg PO Clonazepam Odt (Clonazepam) 1 Mg Tab.rapdis 1 Mg PO QHS Crestor (Rosuvastatin Calcium) 20 Mg Tablet 20 Mg PO Linda 0.5-0.4 Mg Capsule (Dutasteride/Tamsulosin Hcl) 1 Each Cpmp.24hr 1 Each PO DAILYWLUN Carbidopa-Levo 25-100 Mg Odt (Carbidopa/Levodopa) 1 Each Tab.rapdis 1.5 Each PO TID Pramipexole Dihydrochloride (Pramipexole Di-Hcl) 0.25 Mg Tablet 0.25 Mg PO Diagnosis: Problems: (1) Anxiety disorder (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
--- NOTE | 2017-05-02 01:22 | PN ---
DATE: 04/30/2017 PSYCHIATRIC PROGRESS NOTE This is a late entry for 04/30/2017, covers elements not covered in my initial note of 04/30/2017. SUBJECTIVE: I met with the patient the evening of 04/30/2017. The patient slept 5-3/4 hours the previous evening, met with him at length in his room. The morning of 04/30/2017, he was somewhat inappropriate with female nursing staff, asking if she was and how good looking she was and later telling the nurse that he could undress for her. This is rather unusual and had not been noticed previously. His daughter did visit him and he was very appropriate with his daughter. He denies any hallucinations as I met with him. REVIEW OF SYSTEMS: No CV, , pulmonary, eye, ENT system symptoms on review. MENTAL STATUS EXAM: Reasonably oriented. Speech is coherent, has some latency. Abstraction fair, computation impaired, language function intact, attention span short. Mood and affect appears fairly euthymic. LABORATORY DATA: Reviewed. IMPRESSION: Unchanged from initial note. PLAN: Increase Seroquel to 75 mg p.o. at bedtime as a mood stabilizer. Reviewed drug interactions. Risk/benefit ratio favors no further change. NARCISA MONTEZ MD DR: MILES/prachi JOB#: [id number] / [id number]
[2017-05-02 06:21] VITALS: BP 116/83
[2017-05-02] MEDS: CARBIDOPA/LEVODOPA 25/100MG TABLET PO SCH ×3 (08:25→20:03)
[2017-05-02] MEDS: SPIRONOLACTONE 25 MG TABLET PO SCH (08:25)
[2017-05-02] MEDS: MEMANTINE 10 MG TABLET. PO SCH ×2 (08:25→20:03)
[2017-05-02] MEDS: ASPIRIN 81 MG TAB.CHEW PO SCH (08:25)
[2017-05-02] MEDS: amLODIPine BESYLATE 5 MG TABLET PO SCH (08:25)
[2017-05-02] MEDS: GABAPENTIN 300 MG CAPSULE. PO SCH ×4 (08:27→20:03)
[2017-05-02] MEDS: DUTASTERIDE 0.5 MG CAPSULE PO SCH (13:10)
[2017-05-02] MEDS: TAMSULOSIN 0.4 MG CAP.ER.24H. PO SCH (13:12)
[2017-05-02 16:43] VITALS: BP 195/99
[2017-05-02] MEDS ORDERED: amLODIPine BESYLATE 5 MG TABLET PO ONE (16:45)
[2017-05-02 18:58] VITALS: BP 148/66
[2017-05-02] MEDS ORDERED: traZODone 50 MG TABLET. PO PRN (19:00)
[2017-05-02] MEDS: QUEtiapine 50 MG TABLET. PO SCH (20:03)
[2017-05-02] MEDS: clonazePAM 1 MG TABLET PO SCH (20:04)
[2017-05-02] MEDS: DOCUSATE SODIUM 100 MG CAPSULE PO PRN (20:13)
[2017-05-02] MEDS ORDERED: MIRTAZAPINE 7.5 MG TABLET. PO SCH (21:00)
--- NOTE | 2017-05-02 21:23 | PDOC ---
Exam Jb Demential Exam: Jb Note: Please also refer to the separate dictated note~for this date of service dictated separately.~Patient seen individually. Discussed the patient with Nursing staff reviewed the chart.~Reviewed interim history and current functioning. Reviewed vital signs,~Labs/ Radiology~and current medications noted below. Continue current treatment with the changes noted in the dictated addendum note Assessment: Vital Signs: Vital Signs Date Time Temp Pulse Resp B/P (MAP) Pulse Ox O2 Delivery O2 Flow Rate FiO2 05/02/17 18:58 63 18 148/66 (93) 98 05/02/17 16:43 97.6 05/02/17 06:21 Room Air I&O Intake and Output 05/03/17 07:00 Intake Total 2040 ml Balance 2040 ml Intake Oral 2040 ml Current Medications: Meds: Current Medications Acetaminophen (Tylenol) 650 mg PRN Q6HRS PRN PO PAIN / TEMP; Start 04/27/17 at 13:00 Multi-Ingredient Ointment (Analgesic [place]) 1 ben PRN QID PRN TP MUSCLE PAIN; Start 04/27/17 at 13:00 Al Hydroxide/Mg Hydroxide (Mylanta Plus Xs) 15 ml PRN AFTMEALHC PRN PO DYSPEPSIA; Start 04/27/17 at 13:00 Magnesium Hydroxide (Milk Of Magnesia) 2,400 mg PRN QHS PRN PO CONSTIPATION; Start 04/27/17 at 13:00 Amlodipine Besylate (Norvasc) 5 mg DAILY PO Last administered on 05/02/17 08: 25; Start 04/28/17 at 09:00; Stop 05/02/17 at 16:32; Status DC Aspirin (Children'S Aspirin) 81 mg DAILY PO Last administered on 05/02/17 08: 25; Start 04/28/17 at 09:00 Docusate Sodium (Colace) 100 mg PRN BID PRN PO CONSTIPATION Last administered on 05/02/17 20:13; Start 04/27/17 at 14:45 Fluocinonide (Lidex-E) 1 ben PRN BID PRN TP dry scalp; Start 04/27/17 at 14:45 Gabapentin (Neurontin) 300 mg TID@0900,1300,1700 PO Last administered on 17:57; Start 04/27/17 at 17:00 Ketoconazole (Nizoral 2% Shampoo) 1 ben 3X/WEEK TP ; Start 04/28/17 at 09:00 Quetiapine Fumarate (SEROquel) 50 mg QHS PO ; Start 04/27/17 at 21:00; Stop at 21:00; Status DC Spironolactone (Aldactone) 25 mg DAILY PO Last administered on 05/02/17 08:25 ; Start 04/28/17 at 09:00 Carbidopa/Levodopa (Sinemet 25/100) 1.5 tab TID PO ; Start 04/27/17 at 21:00; Stop 04/27/17 at 21:00; Status DC Clonazepam (KlonoPIN) 1 mg QHS PO Last administered on 05/02/17 20:04; Start 04/27/17 at 21:00 Dutasteride (Avodart) 0.5 mg DAILYWLUN PO ; Start 04/28/17 at 12:00; Stop at 12:00; Status DC Gabapentin (Neurontin) 900 mg QHS PO Last administered on 05/02/17 20:03; Start 04/27/17 at 21:00 Influenza Virus Vaccine Quadrival (Fluarix Quad [id number] Syringe) 0.5 ml ONCE ONCE VAX IM ; Start 04/28/17 at 09:00; Stop 04/28/17 at 09:01; Status DC Tamsulosin HCl (Flomax) 0.4 mg DAILYWLUN PO ; Start 04/28/17 at 12:00; Stop at 12:00; Status DC Non-Formulary Medication 1 ea PRN Q8HRS PRN IV RESTLESS LEG PAIN; Start at 16:30; Stop 04/28/17 at 13:24; Status DC Carbidopa/Levodopa (Sinemet 25/100) 1.5 tab TID PO Last administered on 20:03; Start 04/27/17 at 17:00 Tamsulosin HCl (Flomax) 0.4 mg DAILYWLUN PO Last administered on 05/02/17 13: 12; Start 04/27/17 at 17:00 Dutasteride (Avodart) 0.5 mg DAILYWLUN PO Last administered on 05/02/17 13:10 ; Start 04/27/17 at 17:00 Rivastigmine (Exelon) 1 patch DAILY TD ; Start 04/28/17 at 09:00; Stop 04/28/17 at 09:00; Status DC Quetiapine Fumarate (SEROquel) 62.5 mg QHS PO Last administered on 04/29/17 19 :45; Start 04/27/17 at 21:00; Stop 04/30/17 at 18:53; Status DC Memantine (Namenda) 5 mg BID PO Last administered on 04/30/17 08:46; Start at 21:00; Stop 04/30/17 at 17:38; Status DC Non-Formulary Medication 1 ea PRN Q8HRS PRN TP RESTLESS LEG PAIN; Start at 13:24 Vitamin D (Vitamin D3) 50,000 unit WEEKLY PO Last administered on 04/29/17 08: 40; Start 04/29/17 at 09:00 Vitamin D (Vitamin D3) 50,000 unit WEEKLY PO ; Start 05/05/17 at 09:00; Status UNV Mirtazapine (Remeron) 3.75 mg QHS PO Last administered on 05/01/17 20:27; Start 04/29/17 at 21:00; Stop 05/02/17 at 18:52; Status DC Artificial Tears (Artificial Tears) 1 drop PRN Q1HR PRN OU DRY EYE Last administered on 04/29/17 16:10; Start 04/29/17 at 15:30 Memantine (Namenda) 10 mg BID PO Last administered on 05/02/17 20:03; Start at 21:00 Quetiapine Fumarate (SEROquel) 75 mg QHS PO Last administered on 05/02/17 20: 03; Start 04/30/17 at 21:00 Amlodipine Besylate (Norvasc) 10 mg DAILY PO ; Start 05/03/17 at 09:00 Amlodipine Besylate (Norvasc) 5 mg 1X ONCE PO Last administered on 05/02/17 16:43; Start 05/02/17 at 16:45; Stop 05/02/17 at 16:46; Status DC Mirtazapine (Remeron) 7.5 mg QHS PO Last administered on 05/02/17t 20:02; Start 05/02/17 at 21:00 Trazodone HCl (Desyrel) 50 mg PRN QHS PRN PO INSOMNIA, MAY REPEAT X1; Start at 19:00 Active Scripts Active Reported Aldactone (Spironolactone) 25 Mg Tablet 25 Mg PO DAILY Seroquel (Quetiapine Fumarate) 50 Mg Tablet 50 Mg PO QHS Nizoral (Ketoconazole) 120 Ml Shampoo 1 Ben TP 3X/WEEK Gabapentin 600 Mg Tablet 900 Mg PO QHS Gabapentin 300 Mg Capsule 300 Mg PO TID@0900,1300,1700 Fluocinonide-E 0.05% Cream (Fluocinonide/Emollient) 15 Gm Cream..g. 1 Applic TP BID PRN use 2-4x daily to scalp Docusate Sodium 100 Mg Capsule 100 Mg PO PRN BID PRN Aspirin 81 Mg Tab.chew 81 Mg PO DAILY Norvasc (Amlodipine Besylate) 5 Mg Tablet 5 Mg PO DAILY Klor-Con (Potassium Chloride) 20 Meq Packet 20 Meq PO Procardia (Nifedipine) 10 Mg Capsule 10 Mg PO Citalopram Hbr (Citalopram Hydrobromide) 20 Mg/10 Ml Solution 20 Mg PO Clonazepam Odt (Clonazepam) 1 Mg Tab.rapdis 1 Mg PO QHS Crestor (Rosuvastatin Calcium) 20 Mg Tablet 20 Mg PO Linda 0.5-0.4 Mg Capsule (Dutasteride/Tamsulosin Hcl) 1 Each Cpmp.24hr 1 Each PO DAILYWLUN Carbidopa-Levo 25-100 Mg Odt (Carbidopa/Levodopa) 1 Each Tab.rapdis 1.5 Each PO TID Pramipexole Dihydrochloride (Pramipexole Di-Hcl) 0.25 Mg Tablet 0.25 Mg PO Diagnosis: Problems: (1) Anxiety disorder (2) Dementia due to Parkinson's disease with behavioral disturbance (3) Lewy body dementia with behavioral disturbance (4) Impulse control disorder (5) Psychosis, atypical NARCISA MONTEZ MD May 02, 2017 21:23
[2017-05-03 02:16] VITALS: BP 163/94
--- NOTE | 2017-05-03 05:08 | PN ---
DATE: 05/01/2017 PSYCHIATRIC PROGRESS NOTE This late entry 05/01/2017, covers elements not covered in my initial note of 05/01/2017. I met with the patient at great length the evening of 05/01/2017. He has been calm, cooperative, per nursing report, drowsy at times, slept 5 hours the previous evening. Denies any hallucinations. REVIEW OF SYSTEMS: No CV, , pulmonary, eye system symptoms on review. MENTAL STATUS EXAM: Reasonably oriented. Speech is coherent, abstraction fair, computation impaired, language function intact. Mood and affect shows improvement. LABORATORY DATA: Reviewed. IMPRESSION: Unchanged from initial note. PLAN: Continue psychotropics mentioned in my initial note. Reviewed drug interactions, risk/benefit ratio favors no further change. MAN Brittany MONTEZ MD DR: MILES/prachi JOB#: [id number] / [id number]
[2017-05-03 06:03] VITALS: BP 114/75
[2017-05-03] MEDS: MEMANTINE 10 MG TABLET. PO SCH (08:54)
[2017-05-03] MEDS: ASPIRIN 81 MG TAB.CHEW PO SCH (08:54)
[2017-05-03] MEDS: GABAPENTIN 300 MG CAPSULE. PO SCH ×2 (08:54→12:13)
[2017-05-03] MEDS: SPIRONOLACTONE 25 MG TABLET PO SCH (08:54)
[2017-05-03] MEDS: CARBIDOPA/LEVODOPA 25/100MG TABLET PO SCH ×2 (08:55→14:16)
[2017-05-03] MEDS ORDERED: amLODIPine BESYLATE 5 MG TABLET PO SCH (09:00)
[2017-05-03] MEDS: KETOCONAZOLE 2% SHAMPOO 120ML BOTTLE. TP SCH (09:00)
[2017-05-03 10:12] LABS: BASO # 0.1 x10^3/uL (0.0-0.2); BASO % 1 % (0-3); EOS # 0.2 x10^3/uL (0.0-0.7); EOS % 3 % (0-3); HEMATOCRIT 39.3 % (39.0-53.0); HEMOGLOBIN 13.6 g/dL (13.0-17.5); LYMPH # 1.7 x10^3/uL (1.0-4.8); LYMPH % 19 % (24-48); MEAN CORPUSCULAR HEMOGLOBIN 32 pg (25-35); MEAN CORPUSCULAR HGB CONC 35 g/dL (31-37); MEAN CORPUSCULAR VOLUME 94 fL (79-100); MONO # 0.7 x10^3/uL (0.0-1.1); MONO % 8 % (0-9); NEUT # 6.5 x10^3uL (1.8-7.7); NEUT % 71 % (31-73); PLATELET COUNT 264 x10^3/uL (140-400); RED BLOOD COUNT 4.19 x10^6/uL (4.30-5.70); RED CELL DISTRIBUTION WIDTH 12.8 % (11.5-14.5); WHITE BLOOD COUNT 9.2 x10^3/uL (4.0-11.0)
[2017-05-03 10:32] LABS: ALBUMIN 3.9 g/dL (3.4-5.0); ALBUMIN/GLOBULIN RATIO 1.1 (1.0-1.7); CALCIUM 9.1 mg/dL (8.5-10.1); CREATININE 1.5 mg/dL (0.7-1.3); GFR 46.3; POTASSIUM 4.1 mmol/L (3.5-5.1); TOTAL BILIRUBIN 0.2 mg/dL (0.2-1.0); TOTAL PROTEIN 7.5 g/dL (6.4-8.2)
[2017-05-03 11:14] LABS: % BANDS 4 % (0-9); % BASOS 0 % (0-3); % EOS 3 % (0-5); % LYMPHS 20 % (24-48); % METAS 1 % (0-0); % MONOS 7 % (0-10); % SEGS 65 % (35-66); PLT ESTIMATE ADEQUATE (ADEQUATE)
[2017-05-03] MEDS: DUTASTERIDE 0.5 MG CAPSULE PO SCH (12:13)
[2017-05-03] MEDS: TAMSULOSIN 0.4 MG CAP.ER.24H. PO SCH (12:13)
[2017-05-03] MEDS ORDERED: CARB1TAB22 PO (14:55)
[2017-05-03] MEDS ORDERED: CHOL500021 PO (14:56)
[2017-05-03] MEDS ORDERED: [UNRECOGNIZED DRUG - OTHER] TP (15:03)
[2017-05-03] MEDS ORDERED: MIRT15TA PO (15:05)
[2017-05-03] MEDS ORDERED: MEMA10TA PO (15:06)
[2017-05-03 16:48] VITALS: BP 168/89
--- NOTE | 2017-05-04 01:16 | PN ---
DATE: 05/02/2017 This late entry for 05/02/2017 covers elements not covered in my initial note of 05/02/2017. SUBJECTIVE: I met with the patient in the evening of 05/02/2017. The patient slept 6-1/2 hours previous evening, but states he just slept about 3 or 3-1/2 hours according to his observation. His blood pressure has been elevated on 05/02/2017, Norvasc increased. We will defer to Dr. Rosado. REVIEW OF SYSTEMS: No CV, , pulmonary, eye system symptoms on review. Complains of being tired consequent to his high blood pressure. MENTAL STATUS EXAM: Speech is coherent, has some latency. Abstraction fair. No clear sexually inappropriate behaviors with nursing staff reported on 05/02/2017, abstraction fair, computation impaired, language function intact. Mood and affect somewhat withdrawn. LABORATORY DATA: Reviewed. IMPRESSION: Unchanged from initial note. PLAN: Increase Remeron to 7.5 mg at bedtime, trazodone added 50 mg at bedtime p.r.n., may repeat x 1 for insomnia, maintain, rest unchanged. Reviewed drug interactions. Risk/benefit ratio favors no further change. MAN Brittany MONTEZ MD DR: MILES/prachi JOB#: [id number] / [id number]
--- NOTE | 2017-05-04 12:41 | DS ---
DATE OF DISCHARGE: 05/03/2017 This is a late entry for 05/03/2017 and covers elements not covered in my initial note of 05/03/2017. REASON FOR ADMISSION: Briefly, the patient is a 72-year-old male, referred by Dr. Mir, his primary care physician on account of repeated hallucinations at home, throwing water on people who were not there because he was fully convinced they were entering his house. He is up and down all night, chasing people with sticks, thinks there were dogs. Behaviors had been deemed to be potentially dangerous due to his erratic reaction to the hallucinations. He lives alone in his home, even though his son is a few houses down the street from him, but behaviors were deemed dangerous, had failed outpatient psychiatric interventions, referred for inpatient psychiatric stabilization. This was within the context of his Parkinson's disease and his neurologist, outpatient had carefully stabilized his Sinemet in an attempt to adequately control the Parkinson's without overt side effects/psychosis. He had failed outpatient psychiatric interventions. SIGNIFICANT FINDINGS AND CLINICAL COURSE: Following admission, the patient was seen daily individually by myself, followed medically per Dr. Rosado/Dr. Brown. The patient had significant insomnia and adjustments were made in his psychotropics both for the psychosis and for mood stabilization and insomnia. We consulted with Dr. Mir to check with the patient's outpatient neurologist, who did not want to reduce the Sinemet at all and we worked with his current dosage regimen and adjusted his psychotropics. He seemed to respond to a combination of Klonopin 1 mg p.o. at bedtime, Seroquel 75 mg at bedtime, Namenda 10 mg b.i.d., Remeron 7.5 mg at bedtime, trazodone 50 mg at bedtime p.r.n., may repeat x 1 for insomnia and he remained on Neurontin 300 mg 4 times a day. No hallucinations were noted prior to discharge. CONDITION ON DISCHARGE: Improved. REVIEW OF SYSTEMS: No CV, , pulmonary, eye, ENT system symptoms on review. MENTAL STATUS EXAM: Reasonably oriented. Speech coherent, has some latency, abstraction fair, computation impaired, language function intact, attention span short. Mood and affect was improved. FINAL DIAGNOSES: Psychotic disorder, unspecified, probable major neurocognitive disorder, early Lewy body with delusions, in partial remission; anxiety disorder, unspecified; impulse control disorder. Rest of diagnoses unchanged from admission including Parkinson's disease. DISCHARGE MEDICATIONS: Please refer to the [facility]. Outpatient medical followup with his primary care physician, psychiatric followup as arranged. Time for discharge day management is greater than 30 minutes. MAN Brittany MONTEZ MD DR: MILES/prachi JOB#: [id number] / [id number]
[2017-05-05] MEDS ORDERED: CHOLECALCIFEROL (VITAMIN D3) 50,000 UNIT CAPSULE PO SCH (09:00)
== END 2017-05-03 17:08 | disposition home or self-care (01) | DRG 884 ==
LOC: GEROPSY 11:30
PROVIDERS: ADMIT Psychiatry & Neurology Psychiatry; ATTEND Psychiatry & Neurology Psychiatry
DX: F01.51 Vascular dementia, unspecified severity, with behavioral disturbance (principal); F02.81 Dementia in other diseases classified elsewhere, unspecified severity, with behavioral disturbance; G31.83 Neurocognitive disorder with Lewy bodies; F23 Brief psychotic disorder; N18.3 Chronic kidney disease, stage 3 (moderate); E78.5 Hyperlipidemia, unspecified; F41.9 Anxiety disorder, unspecified; F63.9 Impulse disorder, unspecified; G25.81 Restless legs syndrome; G47.00 Insomnia, unspecified; G47.30 Sleep apnea, unspecified; I12.9 Hypertensive chronic kidney disease with stage 1 through stage 4 chronic kidney disease, or unspecified chronic kidney disease; N40.0 Benign prostatic hyperplasia without lower urinary tract symptoms; M19.90 Unspecified osteoarthritis, unspecified site; M48.00 Spinal stenosis, site unspecified; Z60.2 Problems related to living alone
CPT/HCPCS: 36415; 80053; 80061; 81001; 82306; 82607; 83036; 83540; 83550; 83735; 84436; 84443; 84480; 85007; 85025; 86592; 86593; 93005